=== PATIENT | female | born 1965 | race Caucasian/White ===

== ENCOUNTER 2018-09-14 20:07 | Emergency (ER) | payer OTHER ==
[2018-09-14 20:14] VITALS: RESP 18
--- NOTE | 2018-09-14 20:40 | ED ---
General Adult HPI - General Chief complaint: Wound/Laceration Stated complaint: Abscess on back Time Seen by Provider: 09/14/18 20:14 Source: patient Mode of arrival: ambulatory Limitations: no limitations - History of Present Illness Initial comments: Dictation was produced using [employer] dictation software. please excuse any grammatical, word or spelling errors. Chief Complaint: 53-year-old female presents with chief complaint of left scapular pain. History of Present Illness: Patient is a 53-year-old female patient is had a lump on her back for about 12 years. She states that over the last 2-3 days her lump began to swell causing her pain. States the pain slightly worsened and started radiating down her right arm. Patient states she's never had issues with this lump in the past. She was told by her PCP and was told to get it removed however she never had time to do it. He states that the mass began draining with drainage of malodorous fluid. The ROS documented in this emergency department record has been reviewed and confirmed by me. Those systems with pertinent positive or negative responses have been documented in the HPI. All other systems are other negative and/or noncontributory. PHYSICAL EXAM: General Impression: Alert and oriented x3, not in acute distress HEENT: Normocephalic atraumatic, extra-ocular movements intact, pupils equal and reactive to light bilaterally, mucous membranes moist. Cardiovascular: Heart regular rate and rhythm, S1&S2 audible, no murmurs, rubs or gallops Chest: Lungs clear to auscultation bilaterally, no rhonchi, no wheeze, no rales Abdomen: Bowel sounds present, abdomen soft, non-tender, non-distended, no organomegaly Musculoskeletal: Pulses present and equal in all extremities, no peripheral edema Motor: Power 5/5 bilaterally, no focal deficits noted Neurological: CN II-XII grossly intact, no focal motor or sensory deficits noted Skin: 2 x 2 centimeter lump over the left mid trapezius. There is a small punctate area with drainage of malodorous material Psych: Normal affect and mood ED course: 53-year-old female presents with gluteal presentation consistent with cyst on the back. Vital signs upon arrival shows heart rate of 12, blood pressure 2 10/11/2009. Patient appears anxious. Repeat vital signs obtained are unremarkable. Clinically bedside ultrasound was performed showing large fluid filled mass. There is no significant surrounding erythema to suggest cellulitic changes. Patient does report tenderness to palpation about the site. The aspiration was performed with extrusion of purulent fluid. There is a proximally 3 mL of purulent fluid. At this point on the differential includes cyst versus abscess. Patient given prescription for antibiotics. She is instructed to follow up with general surgeon for definitive treatment of cyst. Patient understandable agreeable to plan. Told to return with any worsening symptoms. - Related Data Previous Rx's Medication Instructions Recorded Cephalexin [Keflex] 500 mg PO Q6HR 5 Days #20 cap 09/14/18 Sulfamethoxazole/Trimethoprim 1 each PO BID #10 tablet 09/14/18 [Bactrim DS 800-160 mg] Allergies Allergy/AdvReac Type Severity Reaction Status Date / Time Penicillins Allergy Rash/Hives Verified 09/14/18 20:37 Review of Systems ROS Statement: Those systems with pertinent positive or pertinent negative responses have been documented in the HPI. ROS Other: All systems not noted in ROS Statement are negative. 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, Past Psychological History: No Psychological Hx Reported Smoking Status: Current every day smoker Past Alcohol Use History: None Reported Past Drug Use History: None Reported General Exam Limitations: no limitations Course Vital Signs 09/14/18 20:09 Temperature 97.8 F Pulse Rate 102 H Respiratory 18 Rate Blood Pressure 204/110 O2 Sat by Pulse 97 Oximetry Disposition Clinical Impression: Abscess Disposition: HOME SELF-CARE Instructions (If sedation given, give patient instructions): Abscess Incision and Drainage (ED) Prescriptions: Cephalexin [Keflex] 500 mg PO Q6HR 5 Days #20 cap Sulfamethoxazole/Trimethoprim [Bactrim DS 800-160 mg] 1 each PO BID #10 tablet Is patient prescribed a controlled substance at d/c from ED?: No Referrals: Colt Velasco MD [Primary Care Provider] - 1-2 days Mike Quach MD [STAFF PHYSICIAN] - 1-2 days Time of Disposition: 20:39
[2018-09-14 21:18] VITALS: BP 197/126; PULSE 100; TEMP 98
== END 2018-09-14 21:00 | disposition home or self-care (01) ==
LOC: EC 20:07 → MERGE 20:07 → EC 21:00
DX: L02.414 Cutaneous abscess of left upper limb (principal); F17.200 Nicotine dependence, unspecified, uncomplicated; Z88.0 Allergy status to penicillin
CPT/HCPCS: 99283